=== PATIENT | male | born 1950 | race African-American/Black ===

== ENCOUNTER 2016-07-28 11:30 | Inpatient (IN) | payer OTHER ==
[~2016-07-28] VITALS: Ht 172.7 cm; Wt 93.9 kg
[~2016-07-28 11:30] MED LIST: AMLO-511 PO; CAND16TA2 PO; DOCU-275 PO; FENO135C PO; FURO40 PO; HYDR-4173 PO; INSLAN SQ; ISOS20TA9 PO; KLOR CON; PRAV20TA4 PO; VICOT; XALA2.5OS OU; [UNRECOGNIZED DRUG - CODE] PO; [UNRECOGNIZED DRUG - CODE] PO
[2016-07-28 11:53] LABS: GLUCOSE,POINT OF CARE 170 MG/DL (70-110)
[2016-07-28] MEDS ORDERED: MethylPREDNISolone SOD SUCC 125 MG/2 ML VIAL IVP ONE (12:00)
[2016-07-28] MEDS ORDERED: IPRATROPIUM BROMIDE 0.5 MG/2.5 ML NEB SOLUTION NEB ONE ×2 (12:00→17:00)
[2016-07-28] MEDS ORDERED: ALBUTEROL SULFATE 5 MG/ML 20 ML NEB SOLN [BULK] NEB ONE ×2 (12:00→17:00)
[2016-07-28 12:13] LABS: CALCIUM, TOTAL 8.9 mg/dL (8.8-10.5); CREATININE 2.44 mg/dL (0.60-1.30); POTASSIUM 3.8 mmol/L (3.5-5.1)
[2016-07-28 12:20] LABS: BASOPHILS % (AUTO) 0.2 % (0.0-2.0); EOSINOPHILS % (AUTO) 1.5 % (1.0-6.0); HEMOGLOBIN 9.9 g/dL (13.5-17.5); LYMPHOCYTES # (AUTO) 1.4 K/uL (1.0-4.8); LYMPHOCYTES % (AUTO) 24.4 % (22.0-44.0); MEAN CORPUSCULAR HEMOGLOBIN 28.1 pg (26.0-34.0); MEAN CORPUSCULAR VOLUME 90 fL (80-100); MONOCYTES # (AUTO) 0.6 K/uL (0.1-1.0); MONOCYTES % (AUTO) 10.1 % (2.0-9.0); NEUTROPHILS # (AUTO) 3.6 K/uL (1.8-7.7); NEUTROPHILS % (AUTO) 63.8 % (40.0-70.0); PLATELET COUNT (AUTO) 191 K/uL (150-450); RED BLOOD CELL COUNT(AUTO) 3.54 MIL/uL (4.50-5.90); RED CELL DISTRIBUTION WIDTH 17.9 % (11.5-14.5); WHITE BLOOD COUNT (AUTO) 5.6 K/uL (4.5-11.0)
[2016-07-28 12:23] LABS: ALBUMIN 3.5 g/dL (3.4-5.0); BILIRUBIN,TOTAL 0.4 mg/dL (0.1-1.0); TOTAL PROTEIN, SERUM 7.4 g/dL (6.4-8.2)
[2016-07-28] MEDS ORDERED: 0.9% SODIUM CHLORIDE 5 ML NEB SOLUTION NEB ONE ×2 (12:24→17:35)
[2016-07-28 12:35] LABS: RBC MORPHOLOGY COMMENT ABNORMAL RBC MORPH
[2016-07-28] MEDS ORDERED: FUROSEMIDE 40 MG/4 ML VIAL IVP ONE (13:15)
[2016-07-28] MEDS ORDERED: AZITHROMYCIN 500 MG/NS 250 ML IV ONE (13:15)
[2016-07-28] MEDS ORDERED: ASPIRIN 81 MG CHEWABLE TABLET PO ONE (13:30)
[2016-07-28] MEDS ORDERED: 0.9% SODIUM CHLORIDE 10 ML SYRINGE IVP PRN (13:45)
[2016-07-28] MEDS ORDERED: ONDANSETRON HCL 4 MG/2 ML VIAL IVP PRN (13:45)
[2016-07-28] MEDS ORDERED: ACETAMINOPHEN 325 MG TABLET PO PRN (13:45)
[2016-07-28 14:11] LABS: GLUCOSE,POINT OF CARE 117 MG/DL (70-110)
[2016-07-28 16:46] LABS: ABG A-A DIFF O2 94.7 mmHg (10-20.0); ABG BASE EXCESS 6.9 mmol/L (-2.0-3.0); ABG HCO3 29.5 mmol/L (22.0-26.0); ABG PCO2 61 mmHg (35-45); ABG PH 7.344 (7.35-7.450); ALLEN TEST, BLOOD GAS Positive; TEMPERATURE, FAHRENHEIT, BG 98.6 FAHREN (96.0-98.6)
[2016-07-28 20:45] VITALS: BP 117/64
[2016-07-28] MEDS ORDERED: INFLUENZA VIRUS VACCINE QVS 2016-17 (3YR+)/PF 60 MCG/0.5 ML SYRINGE IM ONE (21:45)
[2016-07-28] MEDS ORDERED: PNEUMOCOCCAL VACCINE POLYVALENT 0.5 ML VIAL [PPSV23] IM ONE (21:45)
[2016-07-28 23:35] VITALS: BP 120/67
[2016-07-28] MEDS: FUROSEMIDE 40 MG/4 ML VIAL IVP SCH (23:58)
[2016-07-28] MEDS: HydrALAZINE HCL 25 MG TABLET PO SCH (23:59)
[2016-07-28] MEDS: RANITIDINE HCL 150 MG TABLET PO SCH (23:59)
[2016-07-28] MEDS: PRAVASTATIN SODIUM 20 MG TABLET PO SCH (23:59)
[2016-07-28] MEDS: LATANOPROST 0.005% 2.5 ML OPHTHALMIC SOLUTION OU SCH (23:59)
[2016-07-28] MEDS: ISOSORBIDE DINITRATE 20 MG TABLET PO SCH (23:59)
[2016-07-29] MEDS: INSULIN DETEMIR 100 UNITS/ML SQ SCH ×3 (00:07→20:52)
[2016-07-29] MEDS: HEPARIN SODIUM,PORCINE 5,000 UNITS/ML VIAL SQ SCH ×4 (00:08→23:51)
[2016-07-29 04:05] VITALS: BP 110/58
[2016-07-29 06:57] LABS: EOSINOPHILS % (AUTO) 0 % (1.0-6.0); HEMOGLOBIN 8.9 g/dL (13.5-17.5); LYMPHOCYTES # (AUTO) 0.7 K/uL (1.0-4.8); LYMPHOCYTES % (AUTO) 22.2 % (22.0-44.0); MEAN CORPUSCULAR HEMOGLOBIN 28.8 pg (26.0-34.0); MEAN CORPUSCULAR HGB CONC 31.8 G/dL (31.0-37.0); MEAN CORPUSCULAR VOLUME 90 fL (80-100); MONOCYTES # (AUTO) 0.4 K/uL (0.1-1.0); MONOCYTES % (AUTO) 13.8 % (2.0-9.0); PLATELET COUNT (AUTO) 183 K/uL (150-450); RED CELL DISTRIBUTION WIDTH 18.3 % (11.5-14.5); WHITE BLOOD COUNT (AUTO) 3.1 K/uL (4.5-11.0)
[2016-07-29 07:05] LABS: HEMOGLOBIN A1C 6.8 % (4.5-6.2)
[2016-07-29 07:20] LABS: BILIRUBIN,TOTAL 0.2 mg/dL (0.1-1.0); CALCIUM, TOTAL 8.8 mg/dL (8.8-10.5); CREATININE 2.4 mg/dL (0.60-1.30); MAGNESIUM 2.3 mg/dL (1.80-2.40); POTASSIUM 4.5 mmol/L (3.5-5.1); TOTAL PROTEIN, SERUM 6.5 g/dL (6.4-8.2)
[2016-07-29 07:38] VITALS: BP 106/56
[2016-07-29] MEDS: LATANOPROST 0.005% 2.5 ML OPHTHALMIC SOLUTION OU SCH ×2 (08:38→20:52)
[2016-07-29] MEDS: DOCUSATE SODIUM 100 MG CAPSULE PO SCH ×2 (08:38→20:52)
[2016-07-29] MEDS: FUROSEMIDE 40 MG/4 ML VIAL IVP SCH ×2 (08:38→20:52)
[2016-07-29] MEDS: POTASSIUM CHLORIDE 8 MEQ ER TABLET PO SCH (08:39)
[2016-07-29] MEDS: HydrALAZINE HCL 25 MG TABLET PO SCH ×2 (08:39→20:54)
[2016-07-29] MEDS: ISOSORBIDE DINITRATE 20 MG TABLET PO SCH ×2 (08:40→20:51)
[2016-07-29] MEDS: FENOFIBRIC ACID 135 MG PO SCH (08:40)
[2016-07-29] MEDS: ALLOPURINOL 300 MG TABLET PO SCH (08:40)
[2016-07-29] MEDS ORDERED: CANDESARTAN CILEXETIL 16 MG TABLET PO SCH (09:00)
[2016-07-29 10:17] LABS: RBC MORPHOLOGY COMMENT ABNORMAL RBC MORPH
[2016-07-29 10:22] LABS: GLUCOSE,POINT OF CARE 140 MG/DL (70-110)
[2016-07-29 10:22] LABS: GLUCOSE,POINT OF CARE 135 MG/DL (70-110)
[2016-07-29 10:22] LABS: GLUCOSE COMMENT 1 Received Meds; GLUCOSE,POINT OF CARE 300 MG/DL (70-110)
[2016-07-29 10:22] LABS: GLUCOSE,POINT OF CARE 302 MG/DL (70-110)
[2016-07-29 11:27] VITALS: BP 115/63
[2016-07-29] MEDS: AmLODIPine BESYLATE 5 MG TABLET PO SCH (12:08)
[2016-07-29 14:23] LABS: GLUCOSE,POINT OF CARE 121 MG/DL (70-110)
[2016-07-29] MEDS: ALBUTEROL SULFATE 2.5 MG/0.5 ML NEB SOLUTION NEB SCH ×2 (14:30→19:43)
[2016-07-29] MEDS: IPRATROPIUM BROMIDE 0.5 MG/2.5 ML NEB SOLUTION NEB SCH ×2 (14:30→19:43)
[2016-07-29 15:37] VITALS: BP 101/60
[2016-07-29] MEDS: INSULIN ASPART 100 UNITS/ML SQ PRN (17:42)
[2016-07-29] MEDS ORDERED: DEXTROSE 50%-WATER 25 GM/50 ML SYRINGE IVP PRN (17:45)
[2016-07-29 19:42] VITALS: BP 97/57
[2016-07-29 20:01] LABS: GLUCOSE COMMENT 1 Received Meds; GLUCOSE,POINT OF CARE 174 MG/DL (70-110)
[2016-07-29] MEDS: RANITIDINE HCL 150 MG TABLET PO SCH (20:51)
[2016-07-29] MEDS: PRAVASTATIN SODIUM 20 MG TABLET PO SCH (20:51)
[2016-07-29 23:38] VITALS: BP 106/73
[2016-07-30] VITALS (7 sets, daily range): BP systolic 96–149; BP diastolic 54–65
[2016-07-30] MEDS: ALBUTEROL SULFATE 2.5 MG/0.5 ML NEB SOLUTION NEB SCH ×2 (02:06→07:44)
[2016-07-30] MEDS: IPRATROPIUM BROMIDE 0.5 MG/2.5 ML NEB SOLUTION NEB SCH ×4 (02:06→21:52)
[2016-07-30] MEDS: INSULIN ASPART 100 UNITS/ML SQ PRN ×3 (06:29→17:14)
[2016-07-30 06:44] LABS: BASOPHILS % (AUTO) 0.4 % (0.0-2.0); EOSINOPHILS % (AUTO) 2.3 % (1.0-6.0); HEMATOCRIT 29.8 % (41-53); HEMOGLOBIN 9.3 g/dL (13.5-17.5); LYMPHOCYTES # (AUTO) 1.8 K/uL (1.0-4.8); LYMPHOCYTES % (AUTO) 33.8 % (22.0-44.0); MEAN CORPUSCULAR HEMOGLOBIN 28.3 pg (26.0-34.0); MEAN CORPUSCULAR HGB CONC 31.1 G/dL (31.0-37.0); MEAN CORPUSCULAR VOLUME 91 fL (80-100); MONOCYTES # (AUTO) 0.6 K/uL (0.1-1.0); MONOCYTES % (AUTO) 11.7 % (2.0-9.0); NEUTROPHILS # (AUTO) 2.8 K/uL (1.8-7.7); NEUTROPHILS % (AUTO) 51.8 % (40.0-70.0); PLATELET COUNT (AUTO) 183 K/uL (150-450); RED BLOOD CELL COUNT(AUTO) 3.27 MIL/uL (4.50-5.90); RED CELL DISTRIBUTION WIDTH 18.4 % (11.5-14.5); WHITE BLOOD COUNT (AUTO) 5.5 K/uL (4.5-11.0)
[2016-07-30 07:04] LABS: ALBUMIN 3.1 g/dL (3.4-5.0); BILIRUBIN,TOTAL 0.2 mg/dL (0.1-1.0); CREATININE 2.28 mg/dL (0.60-1.30); MAGNESIUM 2.3 mg/dL (1.80-2.40); POTASSIUM 4.2 mmol/L (3.5-5.1); TOTAL PROTEIN, SERUM 6.5 g/dL (6.4-8.2)
[2016-07-30] MEDS ORDERED: BISMUTH SUBSALICYLATE 524 MG/30 ML SUSPENSION UDCUP PO PRN (07:30)
[2016-07-30 07:38] LABS: GLUCOSE COMMENT 1 Received Meds; GLUCOSE,POINT OF CARE 165 MG/DL (70-110)
[2016-07-30] MEDS: LEVALBUTEROL HCL 0.63 MG/3 ML NEB SOLUTION NEB SCH ×3 (08:00→21:52)
[2016-07-30 08:04] LABS: RBC MORPHOLOGY COMMENT ABNORMAL RBC MORPH
[2016-07-30] MEDS: ISOSORBIDE DINITRATE 20 MG TABLET PO SCH ×2 (09:00→21:16)
[2016-07-30] MEDS: HydrALAZINE HCL 25 MG TABLET PO SCH ×2 (09:00→21:16)
[2016-07-30] MEDS: DOCUSATE SODIUM 100 MG CAPSULE PO SCH ×2 (09:00→21:00)
[2016-07-30] MEDS: AmLODIPine BESYLATE 5 MG TABLET PO SCH (09:00)
[2016-07-30] MEDS: FUROSEMIDE 40 MG/4 ML VIAL IVP SCH ×2 (09:05→21:15)
[2016-07-30] MEDS: LATANOPROST 0.005% 2.5 ML OPHTHALMIC SOLUTION OU SCH ×2 (09:06→21:15)
[2016-07-30] MEDS: HEPARIN SODIUM,PORCINE 5,000 UNITS/ML VIAL SQ SCH ×3 (09:06→23:55)
[2016-07-30] MEDS: POTASSIUM CHLORIDE 8 MEQ ER TABLET PO SCH (09:07)
[2016-07-30] MEDS: FENOFIBRIC ACID 135 MG PO SCH (09:07)
[2016-07-30] MEDS: ALLOPURINOL 300 MG TABLET PO SCH (09:07)
[2016-07-30] MEDS: INSULIN DETEMIR 100 UNITS/ML SQ SCH ×2 (09:22→21:00)
[2016-07-30] MEDS: RANITIDINE HCL 150 MG TABLET PO SCH (21:16)
[2016-07-30] MEDS: PRAVASTATIN SODIUM 20 MG TABLET PO SCH (21:16)
[2016-07-30] MEDS: HYDROCODONE/ACETAMINOPHEN 5-325 MG TABLET PO PRN (21:19)
[2016-07-31] MEDS: IPRATROPIUM BROMIDE 0.5 MG/2.5 ML NEB SOLUTION NEB SCH ×4 (02:34→20:00)
[2016-07-31] MEDS: LEVALBUTEROL HCL 0.63 MG/3 ML NEB SOLUTION NEB SCH ×4 (02:34→20:00)
[2016-07-31 04:38] VITALS: BP 113/68
[2016-07-31 06:59] LABS: BASOPHILS % (AUTO) 0.2 % (0.0-2.0); EOSINOPHILS % (AUTO) 3.9 % (1.0-6.0); HEMATOCRIT 30.9 % (41-53); HEMOGLOBIN 9.6 g/dL (13.5-17.5); LYMPHOCYTES # (AUTO) 1.7 K/uL (1.0-4.8); LYMPHOCYTES % (AUTO) 31.7 % (22.0-44.0); MEAN CORPUSCULAR HEMOGLOBIN 28.2 pg (26.0-34.0); MEAN CORPUSCULAR HGB CONC 31.1 G/dL (31.0-37.0); MEAN CORPUSCULAR VOLUME 91 fL (80-100); MONOCYTES # (AUTO) 0.7 K/uL (0.1-1.0); NEUTROPHILS # (AUTO) 2.9 K/uL (1.8-7.7); NEUTROPHILS % (AUTO) 52.2 % (40.0-70.0); PLATELET COUNT (AUTO) 199 K/uL (150-450); RED BLOOD CELL COUNT(AUTO) 3.41 MIL/uL (4.50-5.90); RED CELL DISTRIBUTION WIDTH 18.4 % (11.5-14.5); WHITE BLOOD COUNT (AUTO) 5.5 K/uL (4.5-11.0)
[2016-07-31 07:05] LABS: ALBUMIN 3.1 g/dL (3.4-5.0); BILIRUBIN,TOTAL 0.3 mg/dL (0.1-1.0); CALCIUM, TOTAL 9.3 mg/dL (8.8-10.5); CREATININE 2.25 mg/dL (0.60-1.30); MAGNESIUM 2.2 mg/dL (1.80-2.40); POTASSIUM 4.5 mmol/L (3.5-5.1); TOTAL PROTEIN, SERUM 6.7 g/dL (6.4-8.2)
[2016-07-31 07:22] LABS: GLUCOSE,POINT OF CARE 100 MG/DL (70-110)
[2016-07-31 07:43] VITALS: BP 110/75
[2016-07-31 07:52] LABS: GLUCOSE,POINT OF CARE 97 MG/DL (70-110)
[2016-07-31] MEDS: LATANOPROST 0.005% 2.5 ML OPHTHALMIC SOLUTION OU SCH ×2 (08:38→20:49)
[2016-07-31] MEDS: HEPARIN SODIUM,PORCINE 5,000 UNITS/ML VIAL SQ SCH ×3 (08:38→23:48)
[2016-07-31] MEDS: FENOFIBRIC ACID 135 MG PO SCH (08:38)
[2016-07-31] MEDS: HydrALAZINE HCL 25 MG TABLET PO SCH ×2 (08:39→20:48)
[2016-07-31] MEDS: POTASSIUM CHLORIDE 8 MEQ ER TABLET PO SCH (08:39)
[2016-07-31] MEDS: FUROSEMIDE 40 MG/4 ML VIAL IVP SCH ×2 (08:39→20:50)
[2016-07-31] MEDS: ISOSORBIDE DINITRATE 20 MG TABLET PO SCH ×2 (08:39→20:48)
[2016-07-31] MEDS: AmLODIPine BESYLATE 5 MG TABLET PO SCH (08:39)
[2016-07-31] MEDS: DOCUSATE SODIUM 100 MG CAPSULE PO SCH ×2 (08:40→21:00)
[2016-07-31] MEDS: ALLOPURINOL 300 MG TABLET PO SCH (08:40)
[2016-07-31 08:56] LABS: RBC MORPHOLOGY COMMENT ABNORMAL RBC MORPH
[2016-07-31] MEDS: INSULIN DETEMIR 100 UNITS/ML SQ SCH ×2 (09:00→21:01)
[2016-07-31] MEDS ORDERED: DIPHENOXYLATE/ATROP 2.5-0.025 MG TABLET PO ONE (10:45)
[2016-07-31] MEDS ORDERED: SLOWK8 PO (11:45)
[2016-07-31] MEDS ORDERED: FURO80 PO (11:45)
[2016-07-31 11:52] VITALS: BP 107/77
[2016-07-31 11:56] VITALS: BP 105/76
[2016-07-31] MEDS: INSULIN ASPART 100 UNITS/ML SQ PRN ×2 (13:31→21:01)
[2016-07-31 16:36] VITALS: BP 107/75
[2016-07-31] MEDS: CARVEDILOL 6.25 MG TABLET PO SCH ×2 (16:58→23:48)
[2016-07-31 19:42] VITALS: BP 112/71
[2016-07-31] MEDS: RANITIDINE HCL 150 MG TABLET PO SCH (20:48)
[2016-07-31] MEDS: PRAVASTATIN SODIUM 20 MG TABLET PO SCH (20:49)
[2016-08-01] VITALS (7 sets, daily range): BP systolic 98–115; BP diastolic 57–73
[2016-08-01] MEDS: IPRATROPIUM BROMIDE 0.5 MG/2.5 ML NEB SOLUTION NEB SCH ×4 (02:30→21:12)
[2016-08-01] MEDS: LEVALBUTEROL HCL 0.63 MG/3 ML NEB SOLUTION NEB SCH ×4 (02:30→21:12)
[2016-08-01 07:07] LABS: BASOPHILS % (AUTO) 0.7 % (0.0-2.0); EOSINOPHILS % (AUTO) 2.9 % (1.0-6.0); HEMATOCRIT 31.2 % (41-53); HEMOGLOBIN 9.7 g/dL (13.5-17.5); LYMPHOCYTES # (AUTO) 1.5 K/uL (1.0-4.8); LYMPHOCYTES % (AUTO) 27.2 % (22.0-44.0); MEAN CORPUSCULAR HEMOGLOBIN 28.3 pg (26.0-34.0); MEAN CORPUSCULAR HGB CONC 31.2 G/dL (31.0-37.0); MEAN CORPUSCULAR VOLUME 91 fL (80-100); MONOCYTES # (AUTO) 0.6 K/uL (0.1-1.0); MONOCYTES % (AUTO) 11.3 % (2.0-9.0); NEUTROPHILS # (AUTO) 3.3 K/uL (1.8-7.7); NEUTROPHILS % (AUTO) 57.9 % (40.0-70.0); PLATELET COUNT (AUTO) 198 K/uL (150-450); RED BLOOD CELL COUNT(AUTO) 3.44 MIL/uL (4.50-5.90); RED CELL DISTRIBUTION WIDTH 18.3 % (11.5-14.5); WHITE BLOOD COUNT (AUTO) 5.6 K/uL (4.5-11.0)
[2016-08-01 07:22] LABS: GLUCOSE,POINT OF CARE 118 MG/DL (70-110)
[2016-08-01] MEDS: LATANOPROST 0.005% 2.5 ML OPHTHALMIC SOLUTION OU SCH ×2 (08:47→21:22)
[2016-08-01] MEDS: HEPARIN SODIUM,PORCINE 5,000 UNITS/ML VIAL SQ SCH ×2 (08:47→16:40)
[2016-08-01] MEDS: POTASSIUM CHLORIDE 8 MEQ ER TABLET PO SCH (08:50)
[2016-08-01] MEDS: ISOSORBIDE DINITRATE 20 MG TABLET PO SCH ×2 (08:50→23:26)
[2016-08-01] MEDS: CARVEDILOL 6.25 MG TABLET PO SCH ×2 (08:51→15:57)
[2016-08-01] MEDS: FUROSEMIDE 40 MG/4 ML VIAL IVP SCH ×2 (08:51→21:21)
[2016-08-01] MEDS: HydrALAZINE HCL 25 MG TABLET PO SCH ×2 (08:52→21:21)
[2016-08-01] MEDS: INSULIN DETEMIR 100 UNITS/ML SQ SCH ×2 (08:52→21:23)
[2016-08-01] MEDS: DOCUSATE SODIUM 100 MG CAPSULE PO SCH ×2 (08:52→21:00)
[2016-08-01 08:57] LABS: RBC MORPHOLOGY COMMENT ABNORMAL RBC MORPH
[2016-08-01 09:00] LABS: ALBUMIN 3.3 g/dL (3.4-5.0); BILIRUBIN,TOTAL 0.3 mg/dL (0.1-1.0); CALCIUM, TOTAL 9.6 mg/dL (8.8-10.5); CREATININE 2.26 mg/dL (0.60-1.30); MAGNESIUM 2.4 mg/dL (1.80-2.40); POTASSIUM 5.2 mmol/L (3.5-5.1); TOTAL PROTEIN, SERUM 6.8 g/dL (6.4-8.2)
[2016-08-01 10:15] LABS: ABG A-A DIFF O2 26.4 mmHg (10-20.0); ABG BASE EXCESS 12.7 mmol/L (-2.0-3.0); ABG HCO3 34.6 mmol/L (22.0-26.0); ABG PCO2 57 mmHg (35-45); ALLEN TEST, BLOOD GAS Positive; TEMPERATURE, FAHRENHEIT, BG 98.6 FAHREN (96.0-98.6)
[2016-08-01 11:27] LABS: GLUCOSE,POINT OF CARE 138 MG/DL (70-110)
[2016-08-01 11:33] LABS: GLUCOSE COMMENT 1 Received Meds; GLUCOSE,POINT OF CARE 154 MG/DL (70-110)
[2016-08-01 11:33] LABS: GLUCOSE,POINT OF CARE 121 MG/DL (70-110)
[2016-08-01] MEDS: INSULIN ASPART 100 UNITS/ML SQ PRN ×2 (13:09→21:24)
[2016-08-01 16:47] LABS: GLUCOSE,POINT OF CARE 128 MG/DL (70-110)
[2016-08-01 17:47] LABS: GLUCOSE COMMENT 1 Received Meds; GLUCOSE,POINT OF CARE 174 MG/DL (70-110)
[2016-08-01] MEDS: RANITIDINE HCL 150 MG TABLET PO SCH (21:21)
[2016-08-01] MEDS: PRAVASTATIN SODIUM 20 MG TABLET PO SCH (21:22)
[2016-08-01 21:42] LABS: GLUCOSE COMMENT 1 Received Meds; GLUCOSE,POINT OF CARE 162 MG/DL (70-110)
[2016-08-02] MEDS: HEPARIN SODIUM,PORCINE 5,000 UNITS/ML VIAL SQ SCH ×3 (00:29→17:20)
[2016-08-02] MEDS: CARVEDILOL 6.25 MG TABLET PO SCH ×4 (00:29→23:54)
[2016-08-02] MEDS: LEVALBUTEROL HCL 0.63 MG/3 ML NEB SOLUTION NEB SCH ×4 (02:00→20:17)
[2016-08-02] MEDS: IPRATROPIUM BROMIDE 0.5 MG/2.5 ML NEB SOLUTION NEB SCH ×4 (02:39→20:17)
[2016-08-02 03:42] LABS: GLUCOSE,POINT OF CARE 102 MG/DL (70-110)
[2016-08-02 04:26] VITALS: BP 125/66
[2016-08-02 07:23] VITALS: BP 107/56
[2016-08-02] MEDS: POTASSIUM CHLORIDE 8 MEQ ER TABLET PO SCH (08:24)
[2016-08-02] MEDS: FUROSEMIDE 40 MG/4 ML VIAL IVP SCH ×2 (08:24→21:01)
[2016-08-02] MEDS: HYDROCODONE/ACETAMINOPHEN 5-325 MG TABLET PO PRN (08:26)
[2016-08-02] MEDS: LATANOPROST 0.005% 2.5 ML OPHTHALMIC SOLUTION OU SCH ×2 (08:26→21:02)
[2016-08-02] MEDS: INSULIN DETEMIR 100 UNITS/ML SQ SCH ×2 (08:46→21:03)
[2016-08-02] MEDS: DOCUSATE SODIUM 100 MG CAPSULE PO SCH ×2 (09:00→20:18)
[2016-08-02] MEDS: ISOSORBIDE DINITRATE 20 MG TABLET PO SCH ×2 (09:00→20:19)
[2016-08-02] MEDS: HydrALAZINE HCL 25 MG TABLET PO SCH ×2 (09:00→20:58)
[2016-08-02 11:13] VITALS: BP 125/54
[2016-08-02] MEDS: INSULIN ASPART 100 UNITS/ML SQ PRN ×3 (11:30→21:03)
[2016-08-02 16:09] VITALS: BP 105/64
[2016-08-02 19:33] VITALS: BP 105/60
[2016-08-02] MEDS: OXYGEN THERAPY IH SCH (20:16)
[2016-08-02] MEDS: PRAVASTATIN SODIUM 20 MG TABLET PO SCH (21:01)
[2016-08-02] MEDS: RANITIDINE HCL 150 MG TABLET PO SCH (21:01)
[2016-08-02 23:48] VITALS: BP 98/66
[2016-08-03] MEDS: HEPARIN SODIUM,PORCINE 5,000 UNITS/ML VIAL SQ SCH ×3 (00:25→16:31)
[2016-08-03 00:52] LABS: GLUCOSE COMMENT 1 Received Meds; GLUCOSE,POINT OF CARE 166 MG/DL (70-110)
[2016-08-03] MEDS: LEVALBUTEROL HCL 0.63 MG/3 ML NEB SOLUTION NEB SCH ×3 (02:00→14:47)
[2016-08-03] MEDS: IPRATROPIUM BROMIDE 0.5 MG/2.5 ML NEB SOLUTION NEB SCH ×3 (02:00→14:47)
[2016-08-03 04:30] VITALS: BP 101/81
[2016-08-03 06:58] LABS: BASOPHILS % (AUTO) 0.4 % (0.0-2.0); EOSINOPHILS % (AUTO) 2.6 % (1.0-6.0); HEMOGLOBIN 10.3 g/dL (13.5-17.5); LYMPHOCYTES # (AUTO) 1.6 K/uL (1.0-4.8); LYMPHOCYTES % (AUTO) 25.7 % (22.0-44.0); MEAN CORPUSCULAR HEMOGLOBIN 28.2 pg (26.0-34.0); MEAN CORPUSCULAR HGB CONC 31.3 G/dL (31.0-37.0); MEAN CORPUSCULAR VOLUME 90 fL (80-100); MONOCYTES # (AUTO) 0.6 K/uL (0.1-1.0); MONOCYTES % (AUTO) 9.5 % (2.0-9.0); NEUTROPHILS # (AUTO) 3.8 K/uL (1.8-7.7); NEUTROPHILS % (AUTO) 61.8 % (40.0-70.0); PLATELET COUNT (AUTO) 209 K/uL (150-450); RED BLOOD CELL COUNT(AUTO) 3.66 MIL/uL (4.50-5.90); RED CELL DISTRIBUTION WIDTH 17.8 % (11.5-14.5); WHITE BLOOD COUNT (AUTO) 6.1 K/uL (4.5-11.0)
[2016-08-03 07:11] LABS: CALCIUM, TOTAL 10.1 mg/dL (8.8-10.5); CREATININE 2.6 mg/dL (0.60-1.30); MAGNESIUM 2.4 mg/dL (1.80-2.40); POTASSIUM 4.7 mmol/L (3.5-5.1)
[2016-08-03 07:50] VITALS: BP 106/63
[2016-08-03] MEDS: OXYGEN THERAPY IH SCH (08:46)
[2016-08-03 08:58] LABS: RBC MORPHOLOGY COMMENT ABNORMAL RBC MORPH
[2016-08-03] MEDS: FUROSEMIDE 40 MG/4 ML VIAL IVP SCH (09:22)
[2016-08-03] MEDS: CARVEDILOL 6.25 MG TABLET PO SCH ×2 (09:23→16:31)
[2016-08-03] MEDS: HydrALAZINE HCL 25 MG TABLET PO SCH (09:23)
[2016-08-03] MEDS: ISOSORBIDE DINITRATE 20 MG TABLET PO SCH (09:23)
[2016-08-03] MEDS: POTASSIUM CHLORIDE 8 MEQ ER TABLET PO SCH (09:24)
[2016-08-03] MEDS: LATANOPROST 0.005% 2.5 ML OPHTHALMIC SOLUTION OU SCH (09:30)
[2016-08-03] MEDS: DOCUSATE SODIUM 100 MG CAPSULE PO SCH (09:36)
[2016-08-03] MEDS: INSULIN DETEMIR 100 UNITS/ML SQ SCH (09:37)
[2016-08-03 10:58] VITALS: BP 112/49
[2016-08-03 13:16] LABS: GLUCOSE,POINT OF CARE 92 MG/DL (70-110)
[2016-08-03 13:16] LABS: GLUCOSE,POINT OF CARE 141 MG/DL (70-110)
[2016-08-03 13:22] LABS: GLUCOSE,POINT OF CARE 77 MG/DL (70-110)
[2016-08-03 13:22] LABS: GLUCOSE COMMENT 1 Juice/Food/D50 Given; GLUCOSE,POINT OF CARE 58 MG/DL (70-110)
[2016-08-03 13:27] LABS: GLUCOSE,POINT OF CARE 108 MG/DL (70-110)
[2016-08-03 15:40] VITALS: BP 118/66
[2016-08-03] MEDS ORDERED: CARV6.2579 PO (15:53)
[2016-08-10 04:26] LABS: GLUCOSE,POINT OF CARE 105 MG/DL (70-110)
== END 2016-08-03 18:30 | disposition home or self-care (01) | DRG 280 ==
LOC: EMS 11:32 → 5S 18:58
PROVIDERS: ADMIT Family Medicine; ATTEND Family Medicine
PROC: 3E0234Z Introduction of Serum, Toxoid and Vaccine into Muscle, Percutaneous Approach (ICD-10-PCS; 2016-07-28)
PROC: 5A09457 Assistance with Respiratory Ventilation, 24-96 Consecutive Hours, Continuous Positive Airway Pressure (ICD-10-PCS; principal; 2016-07-30)
DX: I21.4 Non-ST elevation (NSTEMI) myocardial infarction (principal); J96.21 Acute and chronic respiratory failure with hypoxia; I50.23 Acute on chronic systolic (congestive) heart failure; I47.1 Supraventricular tachycardia; I13.0 Hypertensive heart and chronic kidney disease with heart failure and stage 1 through stage 4 chronic kidney disease, or unspecified chronic kidney disease; J44.1 Chronic obstructive pulmonary disease with (acute) exacerbation; N18.4 Chronic kidney disease, stage 4 (severe); E87.2 Acidosis; E11.21 Type 2 diabetes mellitus with diabetic nephropathy; I49.9 Cardiac arrhythmia, unspecified; E11.22 Type 2 diabetes mellitus with diabetic chronic kidney disease; G89.4 Chronic pain syndrome; I34.0 Nonrheumatic mitral (valve) insufficiency; N40.0 Benign prostatic hyperplasia without lower urinary tract symptoms; G47.33 Obstructive sleep apnea (adult) (pediatric); K21.9 Gastro-esophageal reflux disease without esophagitis; M19.90 Unspecified osteoarthritis, unspecified site; Z99.81 Dependence on supplemental oxygen; Z79.4 Long term (current) use of insulin; Z95.810 Presence of automatic (implantable) cardiac defibrillator; Z95.0 Presence of cardiac pacemaker; Z23 Encounter for immunization
CPT/HCPCS: 71250; 74000; 82805; 82948; 82962; 83036; 83735; 90471; 93005; 93306; 94640; 94644; 94645; 94660; 96365; 96375; 97163; 97165; 97530; 99285; J0456; J1644; J1940; J2930

== ENCOUNTER 2016-10-03 13:43 | Inpatient (IN) | payer OTHER ==
[~2016-10-03] VITALS: Ht 172.7 cm; Wt 92.4 kg
[~2016-10-03 13:43] MED LIST changes: +CARV6.2579 PO; -FURO40 PO; +FURO80 PO; -KLOR CON; +SLOWK8 PO; -VICOT
[2016-10-03 13:52] LABS: GLUCOSE,POINT OF CARE 126 MG/DL (70-110)
[2016-10-03] MEDS ORDERED: REPA1 PO (13:56)
[2016-10-03] MEDS ORDERED: METO25 PO (13:56)
[2016-10-03] MEDS ORDERED: VALS40TA4 PO (13:56)
[2016-10-03] MEDS ORDERED: SACU1TAB7 PO (13:56)
[2016-10-03] MEDS ORDERED: DIGO125T87 PO (13:56)
[2016-10-03] MEDS ORDERED: ACET1TAB12 PO (13:56)
[2016-10-03 14:54] LABS: BASOPHILS % (AUTO) 0.3 % (0.0-2.0); EOSINOPHILS % (AUTO) 1.3 % (1.0-6.0); HEMATOCRIT 27.7 % (41-53); HEMOGLOBIN 8.3 g/dL (13.5-17.5); LYMPHOCYTES # (AUTO) 2.3 K/uL (1.0-4.8); LYMPHOCYTES % (AUTO) 22.7 % (22.0-44.0); MEAN CORPUSCULAR HEMOGLOBIN 25.7 pg (26.0-34.0); MEAN CORPUSCULAR HGB CONC 30.1 G/dL (31.0-37.0); MEAN CORPUSCULAR VOLUME 86 fL (80-100); MONOCYTES # (AUTO) 1.3 K/uL (0.1-1.0); MONOCYTES % (AUTO) 12.9 % (2.0-9.0); NEUTROPHILS # (AUTO) 6.3 K/uL (1.8-7.7); NEUTROPHILS % (AUTO) 62.8 % (40.0-70.0); PLATELET COUNT (AUTO) 237 K/uL (150-450); RED BLOOD CELL COUNT(AUTO) 3.23 MIL/uL (4.50-5.90); RED CELL DISTRIBUTION WIDTH 19.7 % (11.5-14.5); WHITE BLOOD COUNT (AUTO) 10.1 K/uL (4.5-11.0)
[2016-10-03 15:06] LABS: INR 1.2 (0.9-1.1); PROTHROMBIN TIME 12.5 SEC (9.4-11.6)
[2016-10-03 15:14] LABS: B-TYPE NATRIURETIC PEPTIDE > 5000 pg/mL (0-100); RBC MORPHOLOGY COMMENT ABNORMAL RBC MORPH
[2016-10-03 15:19] LABS: APPEARANCE,URINE CLEAR (CLEAR); GLUCOSE, URINE (UA) NEGATIVE (NEGATIVE); KETONES,URINE NEGATIVE (NEGATIVE); LEUKOCYTE ESTERASE ,URINE NEGATIVE (NEGATIVE); OCCULT BLOOD,URINE NEGATIVE (NEGATIVE); PROTEIN,URINE NEGATIVE (NEGATIVE)
[2016-10-03 15:23] LABS: ADD UA MICROSCOPIC NO
[2016-10-03 16:27] LABS: ANION GAP 5 mmol/L (8-16); CALCIUM, TOTAL 9.1 mg/dL (8.8-10.5); CARBON DIOXIDE 34 mmol/L (22-29); CHLORIDE 103 mmol/L (98-107); CREATININE 2.64 mg/dL (0.60-1.30); GLOMERULAR FILTR. RATE CALC 29 mL/min (>60); POTASSIUM 4.4 mmol/L (3.5-5.1); SODIUM SERUM 142 mmol/L (136-145); UREA NITROGEN, BLOOD 75 mg/dL (7-18)
[2016-10-03 16:53] LABS: ALANINE AMINOTRANSFERASE 39 U/L (12-78); ALBUMIN 3.3 g/dL (3.4-5.0); ASPARTATE AMINOTRANSFERASE 36 U/L (15-37); BILIRUBIN,TOTAL 0.5 mg/dL (0.1-1.0); CREATINE KINASE MB 1.3 ng/mL (0-5); CREATINE KINASE, TOTAL 122 U/L (39-308); DIGOXIN 0.94 ng/mL (0.90-2.00); TOTAL PROTEIN, SERUM 6.8 g/dL (6.4-8.2)
[2016-10-03] MEDS ORDERED: NITROGLYCERIN 2% (1 GM=INCH) PACKET TP ONE (17:15)
[2016-10-03] MEDS ORDERED: ASPIRIN 325 MG TABLET PO ONE (17:15)
[2016-10-03] MEDS ORDERED: 0.9% SODIUM CHLORIDE 10 ML SYRINGE IVP PRN (17:15)
[2016-10-03] MEDS ORDERED: ACETAMINOPHEN 325 MG TABLET PO PRN (17:15)
[2016-10-03] MEDS ORDERED: FUROSEMIDE 40 MG/4 ML VIAL IVP ONE (17:15)
[2016-10-03 17:56] VITALS: BP 102/65
[2016-10-03 22:10] VITALS: BP 126/80
[2016-10-03] MEDS ORDERED: IPRATROPIUM BROMIDE 0.5 MG/2.5 ML NEB SOLUTION NEB PRN (23:15)
[2016-10-03] MEDS ORDERED: ACETAMINOPHEN/CODEINE 300-30 MG TABLET PO PRN (23:15)
[2016-10-03] MEDS ORDERED: ALBUTEROL SULFATE 2.5 MG/0.5 ML NEB SOLUTION NEB PRN (23:15)
[2016-10-03 23:31] VITALS: BP 128/67
[2016-10-04] VITALS (8 sets, daily range): BP systolic 106–130; BP diastolic 56–74
[2016-10-04] MEDS: ALBUTEROL SULFATE 2.5 MG/0.5 ML NEB SOLUTION NEB SCH ×6 (02:57→23:57)
[2016-10-04] MEDS: IPRATROPIUM BROMIDE 0.5 MG/2.5 ML NEB SOLUTION NEB SCH ×6 (02:57→23:57)
[2016-10-04 03:50] LABS: BASOPHILS % (AUTO) 0.2 % (0.0-2.0); EOSINOPHILS % (AUTO) 1.1 % (1.0-6.0); HEMATOCRIT 26.2 % (41-53); HEMOGLOBIN 7.9 g/dL (13.5-17.5); LYMPHOCYTES # (AUTO) 1.7 K/uL (1.0-4.8); LYMPHOCYTES % (AUTO) 23.1 % (22.0-44.0); MEAN CORPUSCULAR HEMOGLOBIN 25.8 pg (26.0-34.0); MEAN CORPUSCULAR VOLUME 86 fL (80-100); MONOCYTES # (AUTO) 0.9 K/uL (0.1-1.0); MONOCYTES % (AUTO) 12.4 % (2.0-9.0); NEUTROPHILS # (AUTO) 4.8 K/uL (1.8-7.7); NEUTROPHILS % (AUTO) 63.2 % (40.0-70.0); PLATELET COUNT (AUTO) 214 K/uL (150-450); RED BLOOD CELL COUNT(AUTO) 3.05 MIL/uL (4.50-5.90); RED CELL DISTRIBUTION WIDTH 19.8 % (11.5-14.5); WHITE BLOOD COUNT (AUTO) 7.5 K/uL (4.5-11.0)
[2016-10-04 04:31] LABS: BILIRUBIN,TOTAL 0.4 mg/dL (0.1-1.0); CALCIUM, TOTAL 8.8 mg/dL (8.8-10.5); CREATININE 2.55 mg/dL (0.60-1.30); POTASSIUM 4.5 mmol/L (3.5-5.1); TOTAL PROTEIN, SERUM 6.3 g/dL (6.4-8.2)
[2016-10-04] MEDS: REPAGLINIDE 1 MG TABLET PO SCH ×2 (06:19→16:56)
[2016-10-04] MEDS: METOPROLOL TARTRATE 25 MG TABLET PO SCH ×2 (09:00→21:00)
[2016-10-04] MEDS ORDERED: CANDESARTAN CILEXETIL 16 MG TABLET PO SCH (09:00)
[2016-10-04] MEDS: DIGOXIN 125 MCG TABLET PO SCH (09:00)
[2016-10-04] MEDS: LATANOPROST 0.005% 2.5 ML OPHTHALMIC SOLUTION OU SCH ×2 (09:17→21:16)
[2016-10-04] MEDS: FUROSEMIDE 40 MG TABLET PO SCH ×2 (09:17→16:56)
[2016-10-04] MEDS: ISOSORBIDE DINITRATE 20 MG TABLET PO SCH ×2 (09:18→21:00)
[2016-10-04] MEDS: CARVEDILOL 6.25 MG TABLET PO SCH ×3 (09:18→21:16)
[2016-10-04] MEDS: ALLOPURINOL 300 MG TABLET PO SCH (09:18)
[2016-10-04] MEDS: HydrALAZINE HCL 25 MG TABLET PO SCH ×2 (09:18→21:00)
[2016-10-04] MEDS: DOCUSATE SODIUM 100 MG CAPSULE PO SCH ×2 (09:18→21:16)
[2016-10-04] MEDS: POTASSIUM CHLORIDE 8 MEQ ER TABLET PO SCH (09:18)
[2016-10-04] MEDS: INSULIN DETEMIR 100 UNITS/ML SQ SCH ×2 (09:23→20:47)
[2016-10-04] MEDS ORDERED: SACUBITRIL/VALSARTAN 49-51 MG TABLET PO SCH (11:00)
[2016-10-04] MEDS: AmLODIPine BESYLATE 5 MG TABLET PO SCH (12:20)
[2016-10-04] MEDS: VALSARTAN 40 MG TABLET PO SCH ×2 (12:20→21:00)
[2016-10-04 17:22] LABS: TEMPERATURE, FAHRENHEIT, BG 98.6 FAHREN (96.0-98.6)
[2016-10-04 18:21] LABS: ABG A-A DIFF O2 26.8 mmHg (10-20.0); ABG BASE EXCESS 11.6 mmol/L (-2.0-3.0); ABG HCO3 33.9 mmol/L (22.0-26.0); ABG OXYHEMOGLOBIN 84.8 % (94.0-100.0); ABG PCO2 60 mmHg (35-45); ABG PH 7.404 (7.35-7.450)
[2016-10-04 18:22] LABS: ALLEN TEST, BLOOD GAS Positive
[2016-10-04] MEDS ORDERED: DEXTROSE 50%-WATER 25 GM/50 ML SYRINGE IVP PRN (19:00)
[2016-10-04] MEDS: PRAVASTATIN SODIUM 20 MG TABLET PO SCH (21:16)
[2016-10-04] MEDS: RANITIDINE HCL 150 MG TABLET PO SCH (21:16)
[2016-10-05] VITALS (17 sets, daily range): BP systolic 104–133; BP diastolic 58–87
[2016-10-05] MEDS: FUROSEMIDE 40 MG TABLET PO SCH ×2 (00:20→10:20)
[2016-10-05] MEDS: MethylPREDNISolone SOD SUCC 40 MG/ML VIAL IVP SCH ×4 (00:21→23:24)
[2016-10-05] MEDS: IPRATROPIUM BROMIDE 0.5 MG/2.5 ML NEB SOLUTION NEB SCH ×6 (03:36→23:11)
[2016-10-05] MEDS: ALBUTEROL SULFATE 2.5 MG/0.5 ML NEB SOLUTION NEB SCH ×6 (03:36→23:11)
[2016-10-05] MEDS: REPAGLINIDE 1 MG TABLET PO SCH ×2 (06:33→17:38)
[2016-10-05] MEDS: INSULIN ASPART 100 UNITS/ML SQ PRN ×4 (06:35→20:52)
[2016-10-05 07:02] LABS: GLUCOSE,POINT OF CARE 107 MG/DL (70-110)
[2016-10-05 07:02] LABS: GLUCOSE,POINT OF CARE 148 MG/DL (70-110)
[2016-10-05 07:06] LABS: BASOPHILS % (AUTO) 0.1 % (0.0-2.0); EOSINOPHILS % (AUTO) 0.8 % (1.0-6.0); HEMATOCRIT 25.8 % (41-53); HEMOGLOBIN 7.7 g/dL (13.5-17.5); LYMPHOCYTES # (AUTO) 1.5 K/uL (1.0-4.8); LYMPHOCYTES % (AUTO) 20.1 % (22.0-44.0); MEAN CORPUSCULAR HEMOGLOBIN 25.9 pg (26.0-34.0); MEAN CORPUSCULAR VOLUME 86 fL (80-100); MONOCYTES # (AUTO) 0.3 K/uL (0.1-1.0); MONOCYTES % (AUTO) 3.6 % (2.0-9.0); NEUTROPHILS # (AUTO) 5.5 K/uL (1.8-7.7); NEUTROPHILS % (AUTO) 75.4 % (40.0-70.0); PLATELET COUNT (AUTO) 210 K/uL (150-450); RED BLOOD CELL COUNT(AUTO) 2.99 MIL/uL (4.50-5.90); RED CELL DISTRIBUTION WIDTH 19.5 % (11.5-14.5); WHITE BLOOD COUNT (AUTO) 7.3 K/uL (4.5-11.0)
[2016-10-05 07:14] LABS: HEMOGLOBIN A1C 6.3 % (4.5-6.2)
[2016-10-05 07:21] LABS: CALCIUM, TOTAL 9.1 mg/dL (8.8-10.5); CHOL/HDL RATIO 2.4 (4.2-7.3); CREATININE 2.25 mg/dL (0.60-1.30); MAGNESIUM 2.3 mg/dL (1.80-2.40); POTASSIUM 4.7 mmol/L (3.5-5.1)
[2016-10-05 07:22] LABS: GLUCOSE,POINT OF CARE 108 MG/DL (70-110)
[2016-10-05] MEDS: INSULIN DETEMIR 100 UNITS/ML SQ SCH ×2 (08:28→20:53)
[2016-10-05] MEDS: LATANOPROST 0.005% 2.5 ML OPHTHALMIC SOLUTION OU SCH ×2 (08:42→20:37)
[2016-10-05] MEDS: DOCUSATE SODIUM 100 MG CAPSULE PO SCH ×2 (08:42→20:37)
[2016-10-05] MEDS: ALLOPURINOL 300 MG TABLET PO SCH (08:42)
[2016-10-05] MEDS: POTASSIUM CHLORIDE 8 MEQ ER TABLET PO SCH (10:20)
[2016-10-05] MEDS: ISOSORBIDE DINITRATE 20 MG TABLET PO SCH ×2 (11:59→21:36)
[2016-10-05] MEDS: CARVEDILOL 6.25 MG TABLET PO SCH ×3 (11:59→20:37)
[2016-10-05] MEDS: VALSARTAN 40 MG TABLET PO SCH ×2 (12:00→22:36)
[2016-10-05 13:09] LABS: RBC MORPHOLOGY COMMENT ABNORMAL RBC MORPH
[2016-10-05] MEDS ORDERED: FURO40 PO (13:30)
[2016-10-05] MEDS: AmLODIPine BESYLATE 5 MG TABLET PO SCH (13:32)
[2016-10-05] MEDS: HydrALAZINE HCL 25 MG TABLET PO SCH ×2 (13:32→21:36)
[2016-10-05] MEDS: DIGOXIN 125 MCG TABLET PO SCH (13:32)
[2016-10-05] MEDS ORDERED: SODIUM CHLORIDE 0.9% 250 ML IV ONE (15:33)
[2016-10-05] MEDS: FUROSEMIDE 40 MG/4 ML VIAL IVP SCH ×2 (16:26→20:38)
[2016-10-05] MEDS: OXYGEN THERAPY IH SCH (19:18)
[2016-10-05] MEDS: RANITIDINE HCL 150 MG TABLET PO SCH (20:37)
[2016-10-05] MEDS: PRAVASTATIN SODIUM 20 MG TABLET PO SCH (20:37)
[2016-10-05] MEDS ORDERED: EPOETIN ALFA 10,000 UNITS/ML VIAL SQ ONE (21:30)
[2016-10-06] VITALS (14 sets, daily range): BP systolic 103–138; BP diastolic 69–81
[2016-10-06] MEDS: ALBUTEROL SULFATE 2.5 MG/0.5 ML NEB SOLUTION NEB SCH ×4 (03:16→23:19)
[2016-10-06] MEDS: IPRATROPIUM BROMIDE 0.5 MG/2.5 ML NEB SOLUTION NEB SCH ×6 (03:16→23:19)
[2016-10-06] MEDS: REPAGLINIDE 1 MG TABLET PO SCH ×2 (06:20→16:49)
[2016-10-06] MEDS: INSULIN ASPART 100 UNITS/ML SQ PRN ×3 (06:20→20:28)
[2016-10-06 06:27] LABS: EOSINOPHILS % (AUTO) 0.1 % (1.0-6.0); HEMATOCRIT 27.6 % (41-53); HEMOGLOBIN 8.5 g/dL (13.5-17.5); LYMPHOCYTES # (AUTO) 0.9 K/uL (1.0-4.8); LYMPHOCYTES % (AUTO) 14.4 % (22.0-44.0); MEAN CORPUSCULAR HEMOGLOBIN 26.4 pg (26.0-34.0); MEAN CORPUSCULAR HGB CONC 30.6 G/dL (31.0-37.0); MEAN CORPUSCULAR VOLUME 86 fL (80-100); MONOCYTES # (AUTO) 0.4 K/uL (0.1-1.0); MONOCYTES % (AUTO) 6.9 % (2.0-9.0); NEUTROPHILS % (AUTO) 78.6 % (40.0-70.0); PLATELET COUNT (AUTO) 187 K/uL (150-450); RED CELL DISTRIBUTION WIDTH 17.7 % (11.5-14.5); WHITE BLOOD COUNT (AUTO) 6.4 K/uL (4.5-11.0)
[2016-10-06 06:56] LABS: ALBUMIN 2.8 g/dL (3.4-5.0); BILIRUBIN,TOTAL 0.5 mg/dL (0.1-1.0); CREATININE 2.14 mg/dL (0.60-1.30); MAGNESIUM 2.3 mg/dL (1.80-2.40); POTASSIUM 4.8 mmol/L (3.5-5.1); TOTAL PROTEIN, SERUM 6.1 g/dL (6.4-8.2)
[2016-10-06] MEDS: MethylPREDNISolone SOD SUCC 40 MG/ML VIAL IVP SCH ×3 (07:55→23:19)
[2016-10-06] MEDS: FUROSEMIDE 40 MG/4 ML VIAL IVP SCH ×3 (07:57→20:09)
[2016-10-06] MEDS: LATANOPROST 0.005% 2.5 ML OPHTHALMIC SOLUTION OU SCH ×2 (07:58→20:08)
[2016-10-06] MEDS: DOCUSATE SODIUM 100 MG CAPSULE PO SCH ×2 (07:59→20:07)
[2016-10-06] MEDS: HydrALAZINE HCL 25 MG TABLET PO SCH ×2 (07:59→22:25)
[2016-10-06] MEDS: ISOSORBIDE DINITRATE 20 MG TABLET PO SCH ×2 (08:02→23:16)
[2016-10-06] MEDS: ALLOPURINOL 300 MG TABLET PO SCH (08:05)
[2016-10-06] MEDS: POTASSIUM CHLORIDE 8 MEQ ER TABLET PO SCH (08:05)
[2016-10-06] MEDS: CARVEDILOL 12.5 MG TABLET PO SCH ×2 (08:13→21:34)
[2016-10-06] MEDS: VALSARTAN 80 MG TABLET PO SCH ×2 (08:14→21:00)
[2016-10-06] MEDS: INSULIN DETEMIR 100 UNITS/ML SQ SCH ×2 (08:20→20:39)
[2016-10-06] MEDS: OXYGEN THERAPY IH SCH ×2 (08:21→19:51)
[2016-10-06 09:09] LABS: RBC MORPHOLOGY COMMENT ABNORMAL RBC MORPH
[2016-10-06] MEDS: DIGOXIN 125 MCG TABLET PO SCH (11:22)
[2016-10-06] MEDS ORDERED: DIGOXIN 250 MCG/ML 2 ML AMP IVP ONE (15:45)
[2016-10-06] MEDS: AMIODARONE HCL 200 MG TABLET PO SCH ×2 (16:49→21:00)
[2016-10-06] MEDS ORDERED: AMIODARONE HCL 150 MG in DEXTROSE 5%-WATER 97 ML IV ONE (18:30)
[2016-10-06] MEDS ORDERED: AMIODARONE HCL 360 MG in DEXTROSE 5%-WATER 242.8 ML IV ONE (18:30)
[2016-10-06 19:46] LABS: GLUCOSE COMMENT 1 Received Meds; GLUCOSE,POINT OF CARE 221 MG/DL (70-110)
[2016-10-06 19:52] LABS: GLUCOSE COMMENT 1 Received Meds; GLUCOSE,POINT OF CARE 228 MG/DL (70-110)
[2016-10-06] MEDS: RANITIDINE HCL 150 MG TABLET PO SCH (20:07)
[2016-10-06] MEDS: PRAVASTATIN SODIUM 20 MG TABLET PO SCH (20:07)
[2016-10-07] VITALS (7 sets, daily range): BP systolic 107–127; BP diastolic 52–78
[2016-10-07] MEDS ORDERED: AMIODARONE HCL 540 MG in DEXTROSE 5%-WATER 239.2 ML IV ONE (01:00)
[2016-10-07] MEDS: IPRATROPIUM BROMIDE 0.5 MG/2.5 ML NEB SOLUTION NEB SCH ×6 (03:00→22:52)
[2016-10-07] MEDS: ALBUTEROL SULFATE 2.5 MG/0.5 ML NEB SOLUTION NEB SCH ×6 (03:00→22:52)
[2016-10-07] MEDS: INSULIN ASPART 100 UNITS/ML SQ PRN ×4 (06:24→20:47)
[2016-10-07] MEDS: REPAGLINIDE 1 MG TABLET PO SCH ×2 (06:25→17:25)
[2016-10-07 06:41] LABS: HEMOGLOBIN 9.2 g/dL (13.5-17.5); MEAN CORPUSCULAR HEMOGLOBIN 26.4 pg (26.0-34.0); MEAN CORPUSCULAR HGB CONC 30.6 G/dL (31.0-37.0); MEAN CORPUSCULAR VOLUME 86 fL (80-100); PLATELET COUNT (AUTO) 186 K/uL (150-450); RED BLOOD CELL COUNT(AUTO) 3.48 MIL/uL (4.50-5.90); RED CELL DISTRIBUTION WIDTH 18.9 % (11.5-14.5); WHITE BLOOD COUNT (AUTO) 8.7 K/uL (4.5-11.0)
[2016-10-07 06:57] LABS: BILIRUBIN,TOTAL 0.4 mg/dL (0.1-1.0); CALCIUM, TOTAL 9.4 mg/dL (8.8-10.5); CREATININE 2.4 mg/dL (0.60-1.30); MAGNESIUM 2.5 mg/dL (1.80-2.40); POTASSIUM 5.5 mmol/L (3.5-5.1); TOTAL PROTEIN, SERUM 6.4 g/dL (6.4-8.2)
[2016-10-07] MEDS ORDERED: SODIUM POLYSTYRENE SULFONATE 15 GM/60 ML SUSPENSION BOTTLE PO ONE (08:00)
[2016-10-07 08:30] LABS: BAND NEUTROPHILS % (MANUAL) 11 % (1-5); LYMPHOCYTES % (MANUAL) 18 % (22-44); RBC MORPHOLOGY COMMENT ABNORMAL RBC MORPH; TOTAL CELLS COUNTED 100
[2016-10-07] MEDS: POTASSIUM CHLORIDE 8 MEQ ER TABLET PO SCH (09:00)
[2016-10-07] MEDS: AMIODARONE HCL 200 MG TABLET PO SCH ×3 (09:02→21:43)
[2016-10-07] MEDS: DOCUSATE SODIUM 100 MG CAPSULE PO SCH ×2 (09:02→21:00)
[2016-10-07] MEDS: CARVEDILOL 12.5 MG TABLET PO SCH ×2 (09:03→20:31)
[2016-10-07] MEDS: ISOSORBIDE DINITRATE 20 MG TABLET PO SCH ×2 (09:04→23:47)
[2016-10-07] MEDS: VALSARTAN 80 MG TABLET PO SCH ×2 (09:04→21:00)
[2016-10-07] MEDS: ALLOPURINOL 300 MG TABLET PO SCH (09:05)
[2016-10-07] MEDS: MethylPREDNISolone SOD SUCC 40 MG/ML VIAL IVP SCH (09:08)
[2016-10-07] MEDS: FUROSEMIDE 40 MG/4 ML VIAL IVP SCH ×3 (09:10→20:31)
[2016-10-07] MEDS: HydrALAZINE HCL 25 MG TABLET PO SCH ×2 (09:11→22:43)
[2016-10-07] MEDS: LATANOPROST 0.005% 2.5 ML OPHTHALMIC SOLUTION OU SCH ×2 (09:11→20:31)
[2016-10-07] MEDS: INSULIN DETEMIR 100 UNITS/ML SQ SCH ×2 (09:16→20:46)
[2016-10-07] MEDS: OXYGEN THERAPY IH SCH ×2 (09:19→20:21)
[2016-10-07 11:27] LABS: GLUCOSE,POINT OF CARE 123 MG/DL (70-110)
[2016-10-07 13:47] LABS: GLUCOSE COMMENT 1 Received Meds; GLUCOSE,POINT OF CARE 237 MG/DL (70-110)
[2016-10-07 13:47] LABS: GLUCOSE COMMENT 1 Received Meds; GLUCOSE,POINT OF CARE 222 MG/DL (70-110)
[2016-10-07 13:48] LABS: GLUCOSE COMMENT 1 Received Meds; GLUCOSE,POINT OF CARE 205 MG/DL (70-110)
[2016-10-07 13:48] LABS: GLUCOSE COMMENT 1 Received Meds; GLUCOSE,POINT OF CARE 228 MG/DL (70-110)
[2016-10-07 14:47] LABS: GLUCOSE,POINT OF CARE 132 MG/DL (70-110)
[2016-10-07 15:37] LABS: GLUCOSE COMMENT 1 Juice/Food/D50 Given; GLUCOSE,POINT OF CARE 187 MG/DL (70-110)
[2016-10-07] MEDS ORDERED: AMIODARONE HCL 750 MG in DEXTROSE 5%-WATER 485 ML IV SCH (19:00)
[2016-10-07 20:02] LABS: GLUCOSE,POINT OF CARE 144 MG/DL (70-110)
[2016-10-07] MEDS: PredniSONE 20 MG TABLET PO SCH (20:31)
[2016-10-07] MEDS: PRAVASTATIN SODIUM 20 MG TABLET PO SCH (20:31)
[2016-10-07] MEDS: RANITIDINE HCL 150 MG TABLET PO SCH (20:31)
[2016-10-07 22:56] LABS: GLUCOSE,POINT OF CARE 135 MG/DL (70-110)
[2016-10-07 23:02] LABS: GLUCOSE,POINT OF CARE 163 MG/DL (70-110)
[2016-10-08] MEDS: ALBUTEROL SULFATE 2.5 MG/0.5 ML NEB SOLUTION NEB SCH ×2 (03:04→06:55)
[2016-10-08] MEDS: IPRATROPIUM BROMIDE 0.5 MG/2.5 ML NEB SOLUTION NEB SCH ×4 (03:04→15:30)
[2016-10-08 04:17] VITALS: BP 114/63
[2016-10-08] MEDS: REPAGLINIDE 1 MG TABLET PO SCH (06:12)
[2016-10-08] MEDS: INSULIN ASPART 100 UNITS/ML SQ PRN ×3 (06:14→18:01)
[2016-10-08 06:27] LABS: GLUCOSE COMMENT 1 Received Meds; GLUCOSE,POINT OF CARE 211 MG/DL (70-110)
[2016-10-08 06:35] LABS: EOSINOPHILS # (AUTO) 0.01 K/uL (0.00-0.70); EOSINOPHILS % (AUTO) 0.17 % (1.0-6.0); HEMATOCRIT 29.7 % (41-53); HEMOGLOBIN 9.5 g/dL (13.5-17.5); LYMPHOCYTES # (AUTO) 0.7 K/uL (1.0-4.8); LYMPHOCYTES % (AUTO) 8.7 % (22.0-44.0); MEAN CORPUSCULAR HEMOGLOBIN 27.2 pg (26.0-34.0); MEAN CORPUSCULAR HGB CONC 31.8 G/dL (31.0-37.0); MEAN CORPUSCULAR VOLUME 86 fL (80-100); MONOCYTES # (AUTO) 0.5 K/uL (0.1-1.0); MONOCYTES % (AUTO) 5.7 % (2.0-9.0); NEUTROPHILS # (AUTO) 7.3 K/uL (1.8-7.7); PLATELET COUNT (AUTO) 186 K/uL (150-450); RED BLOOD CELL COUNT(AUTO) 3.47 MIL/uL (4.50-5.90); RED CELL DISTRIBUTION WIDTH 18.6 % (11.5-14.5); WHITE BLOOD COUNT (AUTO) 8.5 K/uL (4.5-11.0)
[2016-10-08 06:43] LABS: NEUTROPHILS % (AUTO) 85.4 % (40.0-70.0)
[2016-10-08 07:11] LABS: ALBUMIN 2.9 g/dL (3.4-5.0); BILIRUBIN,TOTAL 0.4 mg/dL (0.1-1.0); CALCIUM, TOTAL 8.9 mg/dL (8.8-10.5); CREATININE 2.5 mg/dL (0.60-1.30); MAGNESIUM 2.6 mg/dL (1.80-2.40); POTASSIUM 4.4 mmol/L (3.5-5.1)
[2016-10-08 07:18] VITALS: BP 127/66
[2016-10-08 07:57] LABS: GLUCOSE,POINT OF CARE 110 MG/DL (70-110)
[2016-10-08] MEDS ORDERED: CARVEDILOL 25 MG TABLET PO SCH (09:00)
[2016-10-08] MEDS: FUROSEMIDE 40 MG/4 ML VIAL IVP SCH ×2 (09:05→16:15)
[2016-10-08] MEDS: LATANOPROST 0.005% 2.5 ML OPHTHALMIC SOLUTION OU SCH (09:06)
[2016-10-08] MEDS: HydrALAZINE HCL 25 MG TABLET PO SCH (09:07)
[2016-10-08] MEDS: DOCUSATE SODIUM 100 MG CAPSULE PO SCH (09:07)
[2016-10-08] MEDS: PredniSONE 20 MG TABLET PO SCH (09:08)
[2016-10-08] MEDS: VALSARTAN 80 MG TABLET PO SCH (09:09)
[2016-10-08] MEDS: ISOSORBIDE DINITRATE 20 MG TABLET PO SCH (09:09)
[2016-10-08] MEDS: AMIODARONE HCL 200 MG TABLET PO SCH ×2 (09:10→16:16)
[2016-10-08] MEDS: POTASSIUM CHLORIDE 8 MEQ ER TABLET PO SCH (09:10)
[2016-10-08] MEDS: ALLOPURINOL 300 MG TABLET PO SCH (09:10)
[2016-10-08] MEDS: OXYGEN THERAPY IH SCH (09:21)
[2016-10-08] MEDS: INSULIN DETEMIR 100 UNITS/ML SQ SCH (09:23)
[2016-10-08 11:18] VITALS: BP 123/65
[2016-10-08] MEDS ORDERED: AMIO200T44 PO ×2 (14:39→14:40)
[2016-10-08] MEDS ORDERED: 0.9% SODIUM CHLORIDE 5 ML NEB SOLUTION NEB ONE (15:01)
[2016-10-08 15:12] VITALS: BP 128/62
[2016-10-09 01:07] LABS: GLUCOSE COMMENT 1 Received Meds; GLUCOSE,POINT OF CARE 143 MG/DL (70-110)
[2016-10-09 01:07] LABS: GLUCOSE COMMENT 1 Received Meds; GLUCOSE,POINT OF CARE 172 MG/DL (70-110)
[2016-10-09 01:11] LABS: GLUCOSE COMMENT 1 Received Meds; GLUCOSE,POINT OF CARE 190 MG/DL (70-110)
== END 2016-10-08 18:30 | disposition home or self-care (01) | DRG 280 ==
LOC: EMS 13:45 → AHU 17:23 → 5S 21:40
PROVIDERS: ADMIT Family Medicine; ATTEND Family Medicine
PROC: 30233N1 Transfusion of Nonautologous Red Blood Cells into Peripheral Vein, Percutaneous Approach (ICD-10-PCS; principal; 2016-10-05)
DX: I13.0 Hypertensive heart and chronic kidney disease with heart failure and stage 1 through stage 4 chronic kidney disease, or unspecified chronic kidney disease (principal); J96.20 Acute and chronic respiratory failure, unspecified whether with hypoxia or hypercapnia; I21.4 Non-ST elevation (NSTEMI) myocardial infarction; I50.43 Acute on chronic combined systolic (congestive) and diastolic (congestive) heart failure; E87.2 Acidosis; I47.1 Supraventricular tachycardia; E11.21 Type 2 diabetes mellitus with diabetic nephropathy; E11.22 Type 2 diabetes mellitus with diabetic chronic kidney disease; J44.9 Chronic obstructive pulmonary disease, unspecified; G89.29 Other chronic pain; D64.9 Anemia, unspecified; N18.3 Chronic kidney disease, stage 3 (moderate); I34.0 Nonrheumatic mitral (valve) insufficiency; I27.2 Other secondary pulmonary hypertension; K21.9 Gastro-esophageal reflux disease without esophagitis; G47.33 Obstructive sleep apnea (adult) (pediatric); G31.84 Mild cognitive impairment of uncertain or unknown etiology; M19.90 Unspecified osteoarthritis, unspecified site; E87.5 Hyperkalemia; E11.40 Type 2 diabetes mellitus with diabetic neuropathy, unspecified; N40.0 Benign prostatic hyperplasia without lower urinary tract symptoms; Z79.899 Other long term (current) drug therapy; Z95.810 Presence of automatic (implantable) cardiac defibrillator; Z95.0 Presence of cardiac pacemaker; Z79.4 Long term (current) use of insulin; Z79.82 Long term (current) use of aspirin
CPT/HCPCS: 76770; 82271; 82436; 82607; 82746; 82805; 82962; 83036; 83540; 83550; 83735; 84132; 84300; 86850; 86870; 86900; 86901; 86922; 93005; 93306; 94640; 96374; 97161; 99285; J0282; J0885; J1160; J1940; J2920; J7050; J7060; P9016

== ENCOUNTER 2017-01-23 10:36 | Emergency (ER) | payer OTHER ==
[~2017-01-23] VITALS: Ht 175.3 cm; Wt 100.0 kg
[~2017-01-23 10:36] MED LIST changes: +ACET1TAB12 PO; +AMIO200T44 PO; -CAND16TA2 PO; +DIGO125T87 PO; +FURO40 PO; -FURO80 PO; +METO25 PO; +REPA1 PO; +SACU1TAB7 PO; +VALS40TA4 PO; +[UNRECOGNIZED DRUG - CODE] PO; -[UNRECOGNIZED DRUG - CODE] PO
[2017-01-23 11:07] LABS: HEMATOCRIT 27.9 % (41-53); MEAN CORPUSCULAR HEMOGLOBIN 27.9 pg (26.0-34.0); MEAN CORPUSCULAR HGB CONC 32.2 G/dL (31.0-37.0); MEAN CORPUSCULAR VOLUME 87 fL (80-100); PLATELET COUNT (AUTO) 171 K/uL (150-450); RED BLOOD CELL COUNT(AUTO) 3.22 MIL/uL (4.50-5.90); RED CELL DISTRIBUTION WIDTH 20.2 % (11.5-14.5); WHITE BLOOD COUNT (AUTO) 6.4 K/uL (4.5-11.0)
[2017-01-23 11:15] LABS: ANION GAP 6 mmol/L (8-16); CALCIUM, TOTAL 9.6 mg/dL (8.8-10.5); CARBON DIOXIDE 35 mmol/L (22-29); CHLORIDE 106 mmol/L (98-107); CREATININE 2.52 mg/dL (0.60-1.30); GLOMERULAR FILTR. RATE CALC 31 mL/min (>60); POTASSIUM 4.2 mmol/L (3.5-5.1); SODIUM SERUM 147 mmol/L (136-145); UREA NITROGEN, BLOOD 70 mg/dL (7-18)
[2017-01-23 11:19] LABS: INR 1.1 (0.9-1.1); PROTHROMBIN TIME 11.3 SEC (9.4-11.6)
[2017-01-23 11:29] LABS: BAND NEUTROPHILS % (MANUAL) 4 % (1-5); LYMPHOCYTES % (MANUAL) 21 % (22-44); TOTAL CELLS COUNTED 100
[2017-01-23] MEDS ORDERED: NITROGLYCERIN 2% (1 GM=INCH) PACKET TP ONE (11:30)
[2017-01-23] MEDS ORDERED: ASPIRIN 81 MG CHEWABLE TABLET PO ONE (11:30)
[2017-01-23] MEDS ORDERED: FUROSEMIDE 40 MG/4 ML VIAL IVP ONE (11:30)
[2017-01-23 11:33] LABS: GLUCOSE,POINT OF CARE 118 MG/DL (70-110)
[2017-01-23 11:35] LABS: B-TYPE NATRIURETIC PEPTIDE 769 pg/mL (0-100)
[2017-01-23 11:41] LABS: ALANINE AMINOTRANSFERASE 51 U/L (12-78); ALBUMIN 3.5 g/dL (3.4-5.0); ASPARTATE AMINOTRANSFERASE 49 U/L (15-37); BILIRUBIN,TOTAL 0.2 mg/dL (0.1-1.0); CREATINE KINASE MB 1.8 ng/mL (0-5); CREATINE KINASE, TOTAL 195 U/L (39-308); TOTAL PROTEIN, SERUM 7.5 g/dL (6.4-8.2)
[2017-01-23 12:01] LABS: DIGOXIN < 0.20 ng/mL (0.90-2.00)
[2017-01-23 12:02] LABS: ADD UA MICROSCOPIC YES; APPEARANCE,URINE CLEAR (CLEAR); GLUCOSE, URINE (UA) NEGATIVE (NEGATIVE); KETONES,URINE NEGATIVE (NEGATIVE); LEUKOCYTE ESTERASE ,URINE NEGATIVE (NEGATIVE); OCCULT BLOOD,URINE NEGATIVE (NEGATIVE); PH,URINE 5.5 (5.0-8.0); PROTEIN,URINE TRACE (NEGATIVE)
[2017-01-23 12:11] LABS: RBC,URINE None Seen /HPF (0-2); WBC,URINE 0-2 /HPF (0-5)
[2017-01-23 12:12] LABS: SQUAMOUS EPITHELIAL CELL,UR Few /LPF (None Seen)
[2017-01-23] MEDS ORDERED: HYDROCODONE/ACETAMINOPHEN 5-325 MG TABLET PO ONE (12:45)
[2017-01-23 14:00] VITALS: BP 147/79
== END 2017-01-23 16:05 | disposition short-term general hospital (02) ==
LOC: EMS 10:37
DX: R07.89 Other chest pain (principal); J44.9 Chronic obstructive pulmonary disease, unspecified; I13.10 Hypertensive heart and chronic kidney disease without heart failure, with stage 1 through stage 4 chronic kidney disease, or unspecified chronic kidney disease; E11.22 Type 2 diabetes mellitus with diabetic chronic kidney disease; N18.9 Chronic kidney disease, unspecified
CPT/HCPCS: 36415; 71010; 80053; 80162; 81001; 82550; 82553; 82962; 83880; 84484; 85025; 85610; 85730; 93005; 96374; 99285; J1940

== ENCOUNTER 2017-02-18 14:47 | Emergency (ER) | payer OTHER ==
[~2017-02-18] VITALS: Ht 172.7 cm; Wt 95.0 kg
[2017-02-18] MEDS ORDERED: TAMS0.4C32 PO (15:09)
[2017-02-18] MEDS ORDERED: BUME1TAB17 PO (15:09)
[2017-02-18] MEDS ORDERED: CIPR-278 PO (15:09)
[2017-02-18 15:21] LABS: GLUCOSE,POINT OF CARE 127 MG/DL (70-110)
[2017-02-18 17:16] LABS: APPEARANCE,URINE CLEAR (CLEAR); GLUCOSE, URINE (UA) NEGATIVE (NEGATIVE); KETONES,URINE NEGATIVE (NEGATIVE); LEUKOCYTE ESTERASE ,URINE NEGATIVE (NEGATIVE); OCCULT BLOOD,URINE SMALL (NEGATIVE); PROTEIN,URINE NEGATIVE (NEGATIVE)
[2017-02-18 17:32] VITALS: BP 121/67
[2017-02-18 17:39] LABS: SQUAMOUS EPITHELIAL CELL,UR Rare /LPF (None Seen)
[2017-02-18 17:41] LABS: WBC,URINE 0-2 /HPF (0-5)
== END 2017-02-18 18:10 | disposition home or self-care (01) ==
LOC: EMS 14:51
DX: T83.091A Other mechanical complication of indwelling urethral catheter, initial encounter (principal); I11.0 Hypertensive heart disease with heart failure; I50.9 Heart failure, unspecified; E11.9 Type 2 diabetes mellitus without complications; J44.9 Chronic obstructive pulmonary disease, unspecified; Z79.4 Long term (current) use of insulin
CPT/HCPCS: 51702; 82962; 99284